=== PATIENT | male | born 1960 | race Caucasian/White ===

== ENCOUNTER 2018-10-19 07:39 | Inpatient (IN) | payer BC | END 2018-10-20 10:10 | disposition home or self-care (01) | LOC: PAS IN 07:39 → ORTHO 4S 13:45 | DX: Z96.642 Presence of left artificial hip joint (principal); M25.552 Pain in left hip; T84.119A Breakdown (mechanical) of internal fixation device of unspecified bone of limb, initial encounter; M70.62 Trochanteric bursitis, left hip ==